=== PATIENT | female | born 1940 | race Caucasian/White ===

== ENCOUNTER 2017-02-15 16:27 | Emergency (ER) | payer MEDICARE, BC ==
[~2017-02-15] VITALS: Ht 152.4 cm; Wt 68.9 kg
== END 2017-02-15 17:00 | disposition short-term general hospital (02) ==
LOC: ER 16:27
DX: S00.83XA Contusion of other part of head, initial encounter (principal); E11.9 Type 2 diabetes mellitus without complications; G43.909 Migraine, unspecified, not intractable, without status migrainosus; Z79.82 Long term (current) use of aspirin; Z79.899 Other long term (current) drug therapy; W01.0XXA Fall on same level from slipping, tripping and stumbling without subsequent striking against object, initial encounter